=== PATIENT | female | born 1945 | race Caucasian/White ===

== ENCOUNTER → 2017-11-01 12:43 | Outpatient (CLI) | payer MEDICARE, OTHER, SELFPAY ==
--- NOTE | 2017-11-01 12:47 | ADUL_ITS ---
Reason For Study: Atherosclerosis with claudication Right Velocities Ext. Iliac Artery, dist = 102.0 cm./sec. Common Femoral Artery, prox = 90.4 cm./sec. Prox Anastomosis - 178.0 cm/s Prox graft - 130.0 cm/s Mid graft - 53.9 cm/s Dist graft - 50.7 cm/s Dist Anastomosis - 105.0 cm/s. Post. Tibial Artery, prox = 91.5 cm./sec. Post. Tibial Artery, mid = 69.2 cm./sec. Post. Tibial Artery, dist = 107.0 cm./sec. Ant. Tibial Artery, prox = 106.0 cm./sec. Ant. Tibial Artery, mid = 103.0 cm./sec. Ant. Tibial Artery, dist = 83.8 cm./sec. Procedure Exam performed in department. Interpretation Summary 1. Appears patent right bypass graft without significant stenosis. Ordering Physician: Sohail Buck Referring Physician: Sohail Buck Performed By: Florence Tom RVT
--- NOTE | 2017-11-03 12:12 | LEAS ---
Arterial Study - Arterial Study Arterial Study: Patient: MALGORZATA VAZ Date of scan 11/01/[address] Buck Interpretation: Right lower extremity shows pulsatile flow at the ankle duplex is biphasic flow of both vessels with an JEAN 0.96 of the posterior tibial 1.06 the dorsalis pedis Left lower extremity with biphasic flow noted at the ankle with a slightly decreased waveform compared to the right with an JEAN 0.58 of the posterior tib 0.6 through the dorsalis pedis. Impression: 1. Right lower extremity with mild arterial occlusive disease with a normal JEAN of 1.06 with biphasic flow noted. 2. Left lower extremity with moderate arterial occlusive disease with an JEAN 0.63 and biphasic flow
== END ==
PROVIDERS: Family Provider Internal Medicine; PCP Internal Medicine; Visit Provider Surgery Vascular Surgery
DX: I70.213 Atherosclerosis of native arteries of extremities with intermittent claudication, bilateral legs (principal)
CPT/HCPCS: 93922; 93926

== ENCOUNTER → 2018-05-18 09:02 | Outpatient (CLI) | payer MEDICARE, OTHER, SELFPAY ==
--- NOTE | 2018-05-18 09:07 | CDU_ITS ---
Reason For Study: Stenosis Rt. Velocities/BP Lt. Velocities/BP Prox CCA 60.4/18.8 cm/sec. Prox CCA 121/30.6 cm/sec. Mid CCA 66.3/27 cm/sec. Mid CCA 88/24.4 cm/sec. Dist CCA 61.6/26.4 cm/sec. Dist CCA 115/34.6 cm/sec. Prox ICA 174/66.9 cm/sec. Prox ICA 262/73.9 cm/sec. Mid ICA 181/68.8 cm/sec. Mid ICA 120/37.1 cm/sec. Dist ICA 128/43.2 cm/sec. Dist ICA 78.3/27.9 cm/sec. Rt. ICA/CCA = 2.94. Lt. ICA/CCA = 2.28. Prox ECA 526/52.4 cm/sec. Prox ECA 164/11.8 cm/sec. Rt. Vert. 104/32.2 cm/sec. Lt. Vert. 83.3/27.5 cm/sec. Right Extracranial There is heterogeneous, irregular atherosclerotic plaque noted in the right common carotid artery. There is heterogeneous, irregular atherosclerotic plaque noted in the right internal carotid artery. There is heterogeneous, irregular atherosclerotic plaque noted in the right external carotid artery. Antegrade flow is noted in the right vertebral artery. Left Extracranial There is heterogeneous, irregular atherosclerotic plaque noted in the left common carotid artery. There is heterogeneous, irregular atherosclerotic plaque noted in the left internal carotid artery. There is heterogeneous, irregular atherosclerotic plaque noted in the left external carotid artery. The atherosclerotic plaque causes acoustic shadowing. Antegrade flow is noted in the left vertebral artery. Procedure Carotid Duplex [id number]. Exam performed in department. Interpretation Summary Moderate (50-69%) stenosis right extracranial internal carotid. Severe (>70%) stenosis left extracranial internal carotid. Flow within the vertebral arteries is antegrade bilaterally. Ordering Physician: Sohail Buck Referring Physician: Oc Kelly Performed By: Florence Tom RVT and Student
--- NOTE | 2018-05-18 09:08 | ADUL_ITS ---
Reason For Study: Atherosclerosis with RLE bypass graft Right Velocities Int. Iliac Artery, prox. = 92.7 cm./sec. Common Femoral Artery, prox = 77.8 cm./sec. Prox anastomosis - 81.7 cm/s Prox graft - 148.0 cm/s Mid graft - 77.4 cm/s Dist graft - 57.5 cm/s Dist Anastomosis - 63.9 cm/s. Profunda Femoral Artery = 217.0 cm./sec. Post. Tibial Artery, prox = 114.0 cm./sec. Post. Tibial Artery, mid = 54.5 cm./sec. Post. Tibial Artery, dist = 292.0 cm./sec. Ant. Tibial Artery, prox = 93.8 cm./sec. Ant. Tibial Artery, mid = 65.1 cm./sec. Ant. Tibial Artery, dist = 64.5 cm./sec. Procedure Exam performed in department. Interpretation Summary 1. Right leg bypass graft widely patent and triphasic flow through this. Biphasic in tibials. Ordering Physician: Sohail Buck Referring Physician: Sohail Buck Performed By: Florence Tom RVT
--- NOTE | 2018-05-25 07:57 | LEAS ---
Arterial Study - Arterial Study Arterial Study: Date of scan 05/18/[address] Buck History: Patient with previous right lower extremity bypass graft and known PAD Interpretation: Right lower extremity with biphasic flow noted at the ankle of both vessels with an JEAN 0.78 at the PT and 0.76 of the DP. Left lower extremity with biphasic flow with a PT with an JEAN 0.57 and more of a biphasic to monophasic of the DP with an JEAN 0.48. Impression: 1. Right lower extremity with mild arterial occlusive disease with an JEAN of 0.78 2. Left lower extremity with moderate arterial occlusive disease with an JEAN 0.57
== END ==
PROVIDERS: Family Provider Internal Medicine; PCP Internal Medicine; Referring Provider Surgery Vascular Surgery; Visit Provider Surgery Vascular Surgery
DX: I65.23 Occlusion and stenosis of bilateral carotid arteries (principal); I71.4 Abdominal aortic aneurysm, without rupture; I70.213 Atherosclerosis of native arteries of extremities with intermittent claudication, bilateral legs; I35.0 Nonrheumatic aortic (valve) stenosis; F17.200 Nicotine dependence, unspecified, uncomplicated; E78.00 Pure hypercholesterolemia, unspecified; I10 Essential (primary) hypertension; I70.269 Atherosclerosis of native arteries of extremities with gangrene, unspecified extremity
CPT/HCPCS: 93880; 93922; 93926

== ENCOUNTER → 2018-11-11 12:47 | Outpatient (CLI) | payer MEDICARE, OTHER, SELFPAY ==
--- NOTE | 2018-11-11 12:54 | ADUL_ITS ---
Reason For Study: Atherosclerosis - RLE bypass graft Right Velocities Ext. Iliac Artery, dist = 314 cm./sec. Common Femoral Artery, prox = 76.2 cm./sec. Profunda Femoral Artery = 203 cm./sec. Prox anastomosis - 83.8 cm/s Prox graft - 97.3 cm/s Mid graft - 55.0 cm/s Dist graft - 63.6 cm/s Dist anastomosis - 55.8 cm/s Popliteal artery accidentally omitted. Post. Tibial Artery, prox = 54.2 cm./sec. Post. Tibial Artery, mid = 62.9 cm./sec. Post. Tibial Artery, dist = 35.4 cm./sec. Peroneal Artery, prox = 38.5 cm./sec. Peroneal Artery, mid = 45.6 cm./sec. Peroneal Artery,dist = 10.6 cm./sec. Ant. Tibial Artery, prox = 73.9 cm./sec. Ant. Tibial Artery, mid = 56.3 cm./sec. Ant. Tibial Artery, dist = 50.4 cm./sec. Procedure Exam performed in department. Interpretation Summary 1. right leg with no stenosis and patent bypass graft and triphasic flow noted throughout. Ordering Physician: Sohail Buck Referring Physician: Sohail Buck Performed By: Florence Tom RVT
--- NOTE | 2018-11-11 12:55 | ART_ITS ---
Reason For Study: Atherosclerosis - RLE bypass graft Procedure A bilateral lower extremity continuous wave Doppler with analog waveform analysis and ankle brachial indexes. Left Segmental Pressures Left brachial= 129mmHg. Left posterior tibial artery = 91mmHg. Left dorsalis pedis artery = 78mmHg. The left dorsalis pedis waveforms are biphasic. The left posterior tibial artery waveforms are biphasic. Right Segmental Pressures Right brachial= 151mmHg. Right posterior tibial artery = 116mmHg. Right dorsalis pedis artery = 100mmHg. The right dorsalis pedis waveforms are biphasic. The right posterior tibial artery waveforms are biphasic. Indices The right ankle brachial index by the dorsalis pedis is .66. The right ankle brachial index by the posterior tibial artery is .77. The left ankle brachial index by the dorsalis pedis is .52. The left ankle brachial index by the posterior tibial artery is .60. Interpretation Summary 1. bilateral moderate occlussive disease with nayely 0.77/0.60. Ordering Physician: Sohail Buck Referring Physician: Sohail Buck Performed By: Florence Tom [facility]
== END ==
PROVIDERS: Family Provider Internal Medicine; PCP Internal Medicine; Referring Provider Surgery Vascular Surgery; Visit Provider Surgery Vascular Surgery
DX: I70.269 Atherosclerosis of native arteries of extremities with gangrene, unspecified extremity (principal); I71.4 Abdominal aortic aneurysm, without rupture; I70.213 Atherosclerosis of native arteries of extremities with intermittent claudication, bilateral legs; I35.0 Nonrheumatic aortic (valve) stenosis; F17.200 Nicotine dependence, unspecified, uncomplicated; E78.00 Pure hypercholesterolemia, unspecified; I10 Essential (primary) hypertension; I65.23 Occlusion and stenosis of bilateral carotid arteries
CPT/HCPCS: 93922; 93926

== ENCOUNTER → 2019-07-24 08:01 | Outpatient (CLI) | payer MEDICARE, OTHER, SELFPAY ==
--- NOTE | 2019-07-24 08:05 | ADUL_ITS ---
Reason For Study: Atherosclerosis Right Velocities Ext. Iliac Artery, dist = 45.9 cm./sec. Common Femoral Artery, mid = 50.6 cm./sec. Prox anastomosis, 79.7 cm/sec. Prox graft, 181.4 cm/sec. Prox graft, distal to stenosis, 62.6 cm/sec. Mid graft, 35.5 cm/sec. Dist graft, 63 cm/sec. Dist anastomosis, 38.1 cm/sec. Profunda Femoral Artery = 276.8 cm./sec. Popliteal Artery, prox. = 40.9 cm./sec. Popliteal Artery, mid = 33 cm./sec. Popliteal Artery, dist = 50 cm./sec. Post. Tibial Artery, prox = 50 cm./sec. Post. Tibial Artery, mid = 124.8 cm./sec. Post. Tibial Artery, dist = 132 cm./sec. Peroneal Artery, prox = 61.7 cm./sec. Peroneal Artery, mid = 61.7 cm./sec. Peroneal Artery,dist = 27.7 cm./sec. Ant. Tibial Artery, prox = 72.1 cm./sec. Ant. Tibial Artery, mid = 41.9 cm./sec. Ant. Tibial Artery, dist = 54.1 cm./sec. Procedure Exam performed in department. Interpretation Summary 1. Right leg with patent bypass graft and no significant stenosis with triphasic throughout. Ordering Physician: Sohail Buck Referring Physician: Oc Kelly Performed By: Catherine Morrow RVT
--- NOTE | 2019-07-24 08:05 | CDU_ITS ---
Reason For Study: Carotid artery stenosis Rt. Velocities/BP Lt. Velocities/BP Prox CCA 52.2/14.5 cm/sec. Prox CCA 72.8/20 cm/sec. Mid CCA 55.1/14.5 cm/sec. Mid CCA 82.6/24.9 cm/sec. Dist CCA 55.1/15.4 cm/sec. Dist CCA 81.4/22.5 cm/sec. Prox ICA 175.6/57.2 cm/sec. Prox ICA 230.4/59.1 cm/sec. Mid ICA 202.2/62.6 cm/sec. Mid ICA 106/16 cm/sec. Dist ICA 108.2/29.2 cm/sec. Dist ICA 95/27 cm/sec. Rt. ICA/CCA = 3.67. Lt. ICA/CCA = 2.83. Prox ECA 333.9/59.1 cm/sec. Prox ECA 272.5/20.4 cm/sec. Rt. Vert. 70.4/23.7 cm/sec. Lt. Vert. 48.3/12.6 cm/sec. Right Extracranial There is heterogeneous, irregular atherosclerotic plaque noted in the right common carotid artery. There is heterogeneous, irregular atherosclerotic plaque noted in the right internal carotid artery. There is heterogeneous, irregular atherosclerotic plaque noted in the right external carotid artery. Antegrade flow is noted in the right vertebral artery. Left Extracranial There is heterogeneous, irregular atherosclerotic plaque noted in the left common carotid artery. There is heterogeneous, irregular atherosclerotic plaque noted in the left internal carotid artery. There is heterogeneous, irregular atherosclerotic plaque noted in the left external carotid artery. Antegrade flow is noted in the left vertebral artery. Procedure Carotid Duplex [id number]. Exam performed in department. Interpretation Summary Moderate (50-69%) stenosis right extracranial internal carotid. Moderate (50-69%) stenosis left extracranial internal carotid. Flow within the vertebral arteries is antegrade bilaterally. Ordering Physician: Sohail Buck Referring Physician: Oc Kelly Performed By: Catherine Morrow RVT
--- NOTE | 2019-07-24 08:06 | AAVD_ITS ---
Reason For Study: Atherosclerosis Aorta Measurements Aorta Doppler Measurements Proximal aorta measures1.70 x 1.74cm. in cross- Peak systolic flow velocities within the proximal sectional axis. aorta measure 99 cm/sec. Proximal aorta measures1.60cm. in longitudinal Peak systolic flow velocities within the mid aorta axis. measure 58.2 cm/sec. Mid aorta measures1.76 x 1.76cm. in cross- Peak systolic flow velocities within the distal sectional axis. aorta measure 47.8 cm/sec. Mid aorta measures1.73cm. in longitudinal axis. Distal aorta measures1.64 x 1.62cm. in cross- sectional axis. Distal aorta measures1.57cm. in longitudinal axis. Left Iliac Artery Left iliac artery measures 0.62 x 0.62 cm. in the cross-sectional axis. Left iliac artery measures 0.70 cm. in the longitudinal axis. Peak systolic velocity in the left iliac artery measures 52.3 cm/sec. Right Iliac Artery Right iliac artery measures 0.58 x 0.53 cm. in the cross-sectional axis. Right iliac artery measures 0.60 cm. in the longitudinal axis. Peak systolic velocity in the right iliac artery measures 80.6 cm/sec. Procedure Aorta IVC Iliac vasculature or bypass grafts [id number]. Exam performed in department. Interpretation Summary 1. No aortoiliac stenosis or aneurysm. Ordering Physician: Sohail Buck Referring Physician: Oc Kelly Performed By: Catherine Morrow RVT
--- NOTE | 2019-07-24 08:06 | ART_ITS ---
Reason For Study: Atherosclerosis Procedure A bilateral lower extremity continuous wave Doppler with analog waveform analysis and ankle brachial indexes. Left Segmental Pressures Left brachial= 156mmHg. Left posterior tibial artery = 109mmHg. Left dorsalis pedis artery = 71mmHg. The left dorsalis pedis waveforms are monophasic. The left posterior tibial artery waveforms are biphasic. Right Segmental Pressures Right brachial= 178mmHg. Right posterior tibial artery = 133mmHg. Right dorsalis pedis artery = 126mmHg. The right dorsalis pedis waveforms are biphasic. The right posterior tibial artery waveforms are biphasic. Indices The right ankle brachial index by the dorsalis pedis is 0.71. The right ankle brachial index by the posterior tibial artery is 0.75. The left ankle brachial index by the dorsalis pedis is 0.40. The left ankle brachial index by the posterior tibial artery is 0.61. Interpretation Summary 1. Bilateral occlussive disease with JEAN 0.75 and 0.61 with biphasic flow. Ordering Physician: Sohail Buck Referring Physician: Oc Kelly Performed By: Catherine Morrow RVT
== END ==
PROVIDERS: Family Provider Internal Medicine; PCP Internal Medicine; Referring Provider Surgery Vascular Surgery; Visit Provider Surgery Vascular Surgery
DX: I70.269 Atherosclerosis of native arteries of extremities with gangrene, unspecified extremity (principal); I71.4 Abdominal aortic aneurysm, without rupture; I70.213 Atherosclerosis of native arteries of extremities with intermittent claudication, bilateral legs; I35.0 Nonrheumatic aortic (valve) stenosis; F17.200 Nicotine dependence, unspecified, uncomplicated; E78.00 Pure hypercholesterolemia, unspecified; I10 Essential (primary) hypertension; I65.23 Occlusion and stenosis of bilateral carotid arteries
CPT/HCPCS: 93880; 93922; 93926; 93978

== ENCOUNTER → 2020-03-28 08:03 | Outpatient (CLI) | payer MEDICARE, OTHER, SELFPAY ==
--- NOTE | 2020-03-28 08:06 | CDU_ITS ---
Reason For Study: Carotid stenosis Rt. Velocities/BP Lt. Velocities/BP Prox CCA 65.6/10.8 cm/sec. Prox CCA 101.7/21.6 cm/sec. Mid CCA 52/12.4 cm/sec. Mid CCA 71.8/17 cm/sec. Dist CCA 48.7/16.8 cm/sec. Dist CCA 70/20.6 cm/sec. Prox ICA 236.8/72 cm/sec. Prox ICA 262.8/65.6 cm/sec. Mid ICA 123.6/33.6 cm/sec. Mid ICA 130.2/30.1 cm/sec. Dist ICA 108.2/35.8 cm/sec. Dist ICA 85.3/19.7 cm/sec. Rt. ICA/CCA = 4.55. Lt. ICA/CCA = 3.66. Prox ECA 233.7 cm/sec. Prox ECA 70.6 cm/sec. Rt. Vert. 80.9/27.9 cm/sec. Lt. Vert. 36.1 cm/sec. Right Extracranial There is heterogeneous, irregular atherosclerotic plaque noted in the right common carotid artery. There is heterogeneous, irregular atherosclerotic plaque noted in the right internal carotid artery. There is heterogeneous, irregular atherosclerotic plaque noted in the right external carotid artery. Antegrade flow is noted in the right vertebral artery. Left Extracranial There is heterogeneous, irregular atherosclerotic plaque noted in the left common carotid artery. There is heterogeneous, irregular atherosclerotic plaque noted in the left internal carotid artery. There is heterogeneous, irregular atherosclerotic plaque noted in the left external carotid artery. Antegrade flow is noted in the left vertebral artery. Procedure Carotid Duplex [id number]. Exam performed in department. Interpretation Summary Severe (>70%) stenosis right extracranial internal carotid. Severe (>70%) stenosis left extracranial internal carotid. Flow within the vertebral arteries is antegrade bilaterally. Ordering Physician: Sohail Buck Referring Physician: Oc Kelly Performed By: Catherine Morrow RVT
--- NOTE | 2020-03-28 08:06 | AAVD_ITS ---
Reason For Study: AAA Aorta Measurements Aorta Doppler Measurements Proximal aorta measures1.87 x 1.83cm. in cross- Peak systolic flow velocities within the proximal sectional axis. aorta measure 56.4 cm/sec. Proximal aorta measures1.85cm. in longitudinal Peak systolic flow velocities within the mid aorta axis. measure 38 cm/sec. Mid aorta measures1.71 x 1.71cm. in cross- Peak systolic flow velocities within the distal sectional axis. aorta measure 41.5 cm/sec. Mid aorta measures1.69cm. in longitudinal axis. Distal aorta measures1.90 x 1.91cm. in cross- sectional axis. Distal aorta measures0.79cm. in longitudinal axis. Left Iliac Artery Left iliac artery measures 0.69 x 0.68 cm. in the cross-sectional axis. Left iliac artery measures 0.69 cm. in the longitudinal axis. Peak systolic velocity in the left iliac artery measures 41.5 cm/sec. Right Iliac Artery Right iliac artery measures 0.73 x 0.73 cm. in the cross-sectional axis. Right iliac artery measures 0.70 cm. in the longitudinal axis. Peak systolic velocity in the right iliac artery measures 42.4 cm/sec. Procedure Aorta IVC Iliac vasculature or bypass grafts [id number]. Exam performed in department. Interpretation Summary No aortoiliac aneurysm or stenosis seen. Ordering Physician: Sohail Buck Referring Physician: Oc Kelly Performed By: Catherine Morrow RVT
--- NOTE | 2020-03-28 08:07 | ADUL_ITS ---
Reason For Study: Atherosclerosis Right Velocities Ext. Iliac Artery, dist = 67.6 cm./sec. Common Femoral Artery, mid = 58.8 cm./sec. Prox anastomosis, 83.2 cm/sec. Prox graft, 101.5 cm/sec. Mid graft, 48.7 cm/sec. Dist graft, 62 cm/sec. Dist anastomosis, 52.5 cm/sec. Profunda Femoral Artery = 151.9 cm./sec. Popliteal Artery, prox. = 59.7 cm./sec. Popliteal Artery, mid = 83.4 cm./sec. Popliteal Artery, dist = 65 cm./sec. Retrograde flow noted in the popliteal artery. T/P Trunk, distal to anastomosis, 57.6 cm/sec. Post. Tibial Artery, prox = 74.4 cm./sec. Post. Tibial Artery, mid = 40.2 cm./sec. Post. Tibial Artery, dist = 36.9 cm./sec. Peroneal Artery, prox = 55.6 cm./sec. Peroneal Artery, mid = 40.2 cm./sec. Peroneal Artery,dist = 9.4 cm./sec. Ant. Tibial Artery, prox = 68.6 cm./sec. Ant. Tibial Artery, mid = 33.6 cm./sec. Ant. Tibial Artery, dist = 35.4 cm./sec. Procedure Exam performed in department. Interpretation Summary Patent right leg bypass graft with no stenosis seen. Retrograde flow in popliteal artery. Ordering Physician: Sohail Buck Referring Physician: Oc Kelly Performed By: Catherine Morrow RVT
--- NOTE | 2020-03-28 08:08 | ART_ITS ---
Reason For Study: Atherosclerosis Procedure A bilateral lower extremity continuous wave Doppler with analog waveform analysis and ankle brachial indexes. Left Segmental Pressures Left brachial= 168mmHg. Left posterior tibial artery = 109mmHg. Left dorsalis pedis artery = 94mmHg. The left dorsalis pedis waveforms are monophasic. The left posterior tibial artery waveforms are biphasic. Right Segmental Pressures Right brachial= 181mmHg. Right posterior tibial artery = 162mmHg. Right dorsalis pedis artery = 128mmHg. The right dorsalis pedis waveforms are biphasic. The right posterior tibial artery waveforms are biphasic. Indices The right ankle brachial index by the dorsalis pedis is 0.71. The right ankle brachial index by the posterior tibial artery is 0.90. The left ankle brachial index by the dorsalis pedis is 0.52. The left ankle brachial index by the posterior tibial artery is 0.60. Interpretation Summary bilateral biphsaic flow with JEAN 0.9 and 0.6. Ordering Physician: Sohail Buck Referring Physician: Oc Kelly Performed By: Catherine Morrow RVT and Student
== END ==
PROVIDERS: PCP Internal Medicine; Referring Provider Surgery Vascular Surgery; Visit Provider Surgery Vascular Surgery
DX: I71.4 Abdominal aortic aneurysm, without rupture (principal); I65.23 Occlusion and stenosis of bilateral carotid arteries; I70.213 Atherosclerosis of native arteries of extremities with intermittent claudication, bilateral legs; I35.0 Nonrheumatic aortic (valve) stenosis; F17.200 Nicotine dependence, unspecified, uncomplicated
CPT/HCPCS: 93880; 93922; 93926; 93978